=== PATIENT | male | born 1995 | race Two or more races ===

== ENCOUNTER 2025-03-08 19:56 | Emergency (ER) | payer OTHER, SELFPAY ==
[2025-03-08 19:57] VITALS: BMI 29.2
--- NOTE | 2025-03-08 20:03 | XR_ITS ---
Examination: Fingers, left hand fifth digit 3 views Technique: AP, oblique, lateral views left hand fifth digit 3 views. Exam date and time: March 08, 2025 2115 hrs. Indications: Injury to the hand today with fifth digit pain. Findings: Acute mildly displaced fracture ungual tuft tip distal phalanx fifth digit No dislocation Impression: Acute fracture ungual tuft tip distal phalanx fifth digit
[2025-03-08 20:31] VITALS: BP 121/75; PULSE 66; RESP 18; TEMP 36.8; O2SAT 99
[2025-03-08] MEDS: AMOXICILLIN/POT CLAV 875 TABLET 1 TAB PO (21:23)
[2025-03-08] MEDS: NAPROXEN 250 MG TABLET 500 MG PO (21:35)
--- NOTE | 2025-03-09 00:44 | PD.EDHAND ---
Upper Extremity Injury RME/HPI General Chief Complaint: Hand/Wrist Problems Stated Complaint: LEFT FIFTH FINGER INJURY Time Seen by Provider: 03/08/25 21:02 Arrival date/time: 03/08/25 19:56 29M with no significant PMH presents to ED with L pinky pain after it got smashed between something. Patient has had a tetanus shot in the past 5 years. Limitations: no limitations Related Data Previous Rx's ?Medication ?Instructions ?Recorded amoxicillin 875 mg-potassium 1 tab PO BID 7 days #14 tabs 03/08/25 clavulanate 125 mg tablet Allergies Allergy/AdvReac Type Severity Reaction Status Date / Time No Known Allergies Allergy Verified 03/08/25 19:57 Review of Systems Review of Systems Systems Reviewed: All systems reviewed, normal except as documented Constitutional Constitutional: Reports system reviewed and no additional complaints, except as documented, Denies fever(s) and Denies headache(s) ENT Ears, Nose, Mouth, and Throat: Denies disequilibrium and Denies headache(s) Cardiovascular Cardiovascular: Reports system reviewed and no additional complaints, except as documented, Denies chest pain and Denies dyspnea Respiratory Respiratory: Reports system reviewed and no additional complaints, except as documented, Denies cough and Denies dyspnea Gastrointestinal Gastrointestinal: Reports system reviewed and no additional complaints, except as documented, Denies abdominal pain, Denies nausea and Denies vomiting Musculoskeletal Musculoskeletal: Reports as per HPI and Reports arthralgias Integumentary/Breasts Skin/Breast: Reports as per HPI and Reports skin pain Neurologic Neurologic: Reports system reviewed and no additional complaints, except as documented, Denies confusion, Denies disequilibrium and Denies headache(s) Psychiatric Psychiatric: Denies confusion Past Medical History Past Medical History CARDIAC: Negative Congestive Heart Failure RESPIRATORY: Negative Chronic Obstructive Pulmonary Disease (COPD) GENITOURINARY: Negative Renal Disease ENDOCRINE: Negative Diabetes Mellitus Type 1 or Diabetes Mellitus Type 2 Social History SMOKING STATUS: Never smoker ED Exam General Limitations: Present no limitations General appearance: Present alert and in no apparent distress Head Head exam: Present atraumatic Eye Eye exam: Present normal appearance, PERRL and EOMI ENT ENT exam: Present normal exam, normal oropharynx and mucous membranes moist Neck Neck exam: Present normal inspection, full ROM and trachea midline Chest Chest inspection: Present normal inspection and symmetric chest wall rise Respiratory Respiratory exam: Present normal lung sounds bilaterally Cardiovascular Cardiovascular exam: Present regular rate, normal rhythm and normal heart sounds Abdominal Exam Abdominal exam: Present soft and normal bowel sounds Expanded Upper Extremity Exam Hand exam: Present tenderness, swelling and laceration (0.25 cm L pinky tip) Back Exam Back exam: Present normal inspection and full ROM Neurological Exam Neurological exam: Present alert, oriented X3 and CN II-XII intact Psychiatric Psychiatric exam: Present normal affect and normal mood Skin Skin exam: Present warm, dry, intact and normal color Course Quality Measures none Orders Category Date Time Status Wound Care NOW Care 03/08/25 21:03 Completed XR finger LT min 2V Stat Exams 03/08/25 20:03 Completed Amoxicillin/Pot Clav 875 [Augmentin 875] Med 03/08/25 21:03 Discontinued 1 tab PO X1 ONE Naproxen [Naprosyn] Med 03/08/25 21:28 Discontinued 500 mg PO X1 ONE Vital Signs Vital signs: Vital Signs Temperature 98.3 F 03/08/25 20:31 Pulse Rate 66 03/08/25 20:31 Respiratory Rate 18 03/08/25 20:31 Blood Pressure 121/75 03/08/25 20:31 Pulse Oximetry (%) 99 03/08/25 20:31 Oxygen Delivery Method Room Air 03/08/25 20:31 O2 at 99% on RA and WNLs Extremity Injury MDM Narrative MDM Narrative:: 29M with no significant PMH presents to ED with L pinky pain after it got smashed between something. Patient has had a tetanus shot in the past 5 years. Physical exam reveals L pinky tip tenderness and small 0.25 lac at tip. Fingernail mostly intact. ROM somewhat limited. Patient is afebrile, calm, and alert. Wound cleaned/irrigated and closed with 1 steri-strip. XR reveals L pinky tuft fx. Given finger splint and ABX for possible open fx. Patient data External records reviewed:: [facility] previous records Clinical information provided by:: patient Social determinants that could affect healthcare access:: none Patient has the following chronic illnesses:: none How is presenting disease/condition affected by chronic disease/condition?: no chronic disease Evaluation data The following diagnostics were reviewed and interpreted by me:: radiology exam(s) Lab and/or radiology exams considered but not ordered:: ordered Interpretation Summary: above Medications / Prescriptions Medications or Prescriptions considered but not ordered:: ordered Medication administrations:: Medication Administration History Discontinued Medications Amoxicillin/Clavulanate Potassium (Amoxicillin/Pot Clav 875 Tablet) 1 tab PO X1 ONE Stop: 03/08/25 21:04 Last Admin: 03/08/25 21:23 Dose: 1 tab Documented By: SHALONDA Naproxen (Naproxen 250 Mg Tablet) 500 mg PO X1 ONE Stop: 03/08/25 21:29 Last Admin: 03/08/25 21:35 Dose: 500 mg Documented By: SHALONDA above Consultations Consultation(s) initiated? (list below): No Diagnosis Upper Extremity Injury Differential Diagnosis: sprain and strain of wrist, fracture of wrist, finger sprain, dislocation of finger, Colles' fracture, fracture of hand and other (finger fx) Most likely diagnosis given after review of the tests above:: finger fx Admission Indicated Admission indicated?: not indicated Admission Request Was there a request for admission?: No Disposition Plan Disposition Plan: Discharge Discharge Attestation Discharge Attestation: The patient and all family members were given an opportunity to ask questions and understood the discharge instructions. Discharge instructions specifically effects, indications for sooner follow up or return to the emergency department, and the expected course of current diagnosis. Patient condition: Stable Discharge Plan Plan Patient Disposition: HOME (Self Care) Disposition Comment: Stable Prescriptions/Referrals Prescriptions/Med Rec: New amoxicillin-pot clavulanate 875-125 mg tablet 1 tab PO BID 7 Days Qty: 14 0RF Referrals: No Primary/Family,Physician [Primary Care Provider] - In 1 week Problem List Clinical Impression: Finger fracture Patient/Caregiver Discharge Instructions Education Materials: ED Fracture, Finger, Open Additional Instructions: Please follow-up with PCP within 24-48 hours and return immediately if symptoms worsen. If problem persists, recommend outpatient PT and/or MRI follow-up. In the meantime, rest, use ice/heat, and/or compression. Keep finger dry and bandaged. Print Language: Vietnamese Stand Alone Forms: Patient Portal Info Letter PA/SUZY Supervising Physician DEDRICK/SUZY Supervising Physician: Dr. Hicks
== END 2025-03-08 22:00 | disposition home or self-care (01) ==
PROVIDERS: Emergency Provider Emergency Medicine
DX: S62.637A Displaced fracture of distal phalanx of left little finger, initial encounter for closed fracture (principal); W23.0XXA Caught, crushed, jammed, or pinched between moving objects, initial encounter
CPT/HCPCS: 73140; 99283; A9270